=== PATIENT | male | born 1955 | race Caucasian/White ===

== ENCOUNTER 2017-10-27 09:04 | Emergency (ER) | payer BC ==
[2017-10-27 09:24] VITALS: BP 129/74
--- NOTE | 2017-10-27 10:38 | RAD ---
Indication: Left hand injury. 4 views of left hand demonstrates no fracture. Soft tissue swelling is noted. There appears to be a foreign body or calcification in between the first and second metacarpal heads. IMPRESSION: No fracture is identified. Foreign body or calcification is noted between heads of the first and second metacarpal.
--- NOTE | 2017-10-27 11:08 | UC ---
Hand/Wrist HPI - HPI Summary HPI Summary: got left hand shut in a door at the car garage yesterday swelling on dorsum of left hand - History Of Current Complaint Chief Complaint: UCUpperExtremity Stated Complaint: HAND INJURY Time Seen by Provider: 10/27/17 10:58 Hx Obtained From: Patient ?: No Mechanism Of Injury: crush injury Onset/Duration: Sudden Onset, Lasting Days - 1 Severity Initially: Mild Severity Currently: Mild Pain Intensity: 4 Pain Scale Used: 0-10 Numeric Character Of Pain: Aching, Stiffness Aggravating Factor(s): Movement Alleviating Factor(s): Nothing Associated Signs And Symptoms: Positive: Swelling, Bruising Related History: Dominant Hand Right - Allergies/Home Medications Allergies/Adverse Reactions: Allergies Allergy/AdvReac Type Severity Reaction Status Date / Time No Known Allergies Allergy Verified 10/27/17 09:24 Home Medications: Home Medications Albuterol HFA INHALER* [Ventolin HFA Inhaler*] 1 puff INH Q4H PRN 10/27/17 [ History Confirmed 10/27/17] Aspirin 81 mg PO 10/27/17 [History] Clopidogrel Bisulfate [Plavix] 75 mg PO 10/27/17 [History] Ranitidine HCl (Nf) [Zantac] 75 mg PO 10/27/17 [History] Simvastatin [Zocor] 40 mg PO 10/27/17 [History] dilTIAZem HCl [Cardizem 30 MG TAB] 30 mg PO 10/27/17 [History] PMH/Surg Hx/FS Hx/Imm Hx Previously Healthy: No Endocrine History: Dyslipidemia Cardiovascular History: Cardiac Disease, Hypertension GI/ History: Gastroesophageal Reflux - Surgical History Surgical History: Yes Surgery Procedure, Year, and Place: BACK-DISC 1991 - Family History Known Family History: Positive: None, Cardiac Disease, Hypertension, Diabetes - Social History Occupation: Employed Full-time Lives: With Family Alcohol Use: Rare Substance Use Type: None Smoking Status (MU): Former Smoker Amount Used/How Often: 7 PER DAY Have You Smoked in the Last Year: No Cessation Counseling: Patient Advised to Stop Review of Systems Constitutional: Negative Skin: Negative Eyes: Negative ENT: Negative Respiratory: Negative Cardiovascular: Negative Gastrointestinal: Negative Genitourinary: Negative Motor: Negative Neurovascular: Negative Musculoskeletal: Arthralgia - left hand, Other: - hematoma secondary to crush injury dorsum left hand Neurological: Negative Psychological: Negative Is Patient Immunocompromised?: No All Other Systems Reviewed And Are Negative: Yes Physical Exam Triage Information Reviewed: Yes Appearance: Well-Appearing, Well-Nourished, Pain Distress - mild Vital Signs: Initial Vital Signs Temp 98.5 F 10/27/17 09:20 Pulse 75 10/27/17 09:20 Resp 18 10/27/17 09:20 BP 129/74 10/27/17 09:20 Pulse Ox 97 10/27/17 09:20 Vital Signs Reviewed: Yes Eye Exam: Normal Eyes: Positive: Conjunctiva Clear ENT Exam: Normal ENT: Positive: Normal ENT inspection, Hearing grossly normal. Negative: Nasal congestion, Tonsillar swelling, Tonsillar exudate, Trismus, Muffled voice, Hoarse voice, Dental tenderness, Sinus tenderness Dental Exam: Normal Neck exam: Normal Neck: Positive: Supple, Nontender, No Lymphadenopathy Respiratory Exam: Normal Respiratory: Positive: Chest non-tender, Lungs clear, Normal breath sounds, No respiratory distress, No accessory muscle use Cardiovascular Exam: Normal Cardiovascular: Positive: RRR, No Murmur, Pulses Normal, Brisk Capillary Refill Musculoskeletal Exam: Normal Musculoskeletal: Positive: Strength Intact, ROM Intact, Edema @ - swelling dorsum of left hand Neurological Exam: Normal Neurological: Positive: Alert, Muscle Tone Normal, Fatigued Psychological Exam: Normal Diagnostics - Radiology No standard instances Xray Interpretation: Positive (See Comments) - swelling dorsal left hand incidental finding fb vs calcification between 1&2 metacarpals Radiology Interpretation Completed By: ED Physician, Radiologist Hand/Wrist Course/Dx - Course Course Of Treatment: ice followed by heat, jackie wrap for compression pain med prn follow with pcp prn - Differential Dx/Diagnosis Provider Diagnoses: contusion crush injury left hand, nicotine dependent Discharge - Discharge Plan Condition: Stable Disposition: HOME Prescriptions: traMADol TAB* [Ultram*] 50 mg PO Q6HR PRN #12 tab MDD 4 PRN Reason: pain Patient Education Materials: Hematoma (ED) Referrals: Chetan Santiago MD [Primary Care Provider] - If Needed
== END 2017-10-27 11:25 | disposition home or self-care (01) ==
LOC: UCEAST 09:04
DX: S60.222A Contusion of left hand, initial encounter (principal); W23.0XXA Caught, crushed, jammed, or pinched between moving objects, initial encounter; Y93.9 Activity, unspecified; Y92.59 Other trade areas as the place of occurrence of the external cause; E78.5 Hyperlipidemia, unspecified; I11.9 Hypertensive heart disease without heart failure; K21.9 Gastro-esophageal reflux disease without esophagitis; Z87.891 Personal history of nicotine dependence
CPT/HCPCS: 99212; G0463

== ENCOUNTER 2018-08-01 10:56 | Emergency (ER) | payer BC, OTHER ==
[2018-08-01 11:24] VITALS: BP 142/85
[2018-08-01] MEDS ORDERED: Lidocaine 1% MPF* 2 ML VIAL INJ ONE (11:29)
--- NOTE | 2018-08-01 11:33 | UC ---
UC General HPI - HPI Summary HPI Summary: CUT R HAND IN 2 PLACES ON SHEET METAL WHILE AT WORKED. 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 NO FB SNESATION OR LIMITED USE. TETANUS WITHIN 10 YEARS. PT C/O ONGOING BLEEDING. HE IS ON PLAVIX. - History of Current Complaint Chief Complaint: UCLaceration Stated Complaint: WC RIGHT HAND LACERATION Time Seen by Provider: 08/01/18 11:11 Hx Obtained From: Patient Onset/Duration: Sudden Onset Timing: Constant Pain Intensity: 0 Associated Signs & Symptoms: Negative: Fever - Allergy/Home Medications Allergies/Adverse Reactions: Allergies Allergy/AdvReac Type Severity Reaction Status Date / Time No Known Allergies Allergy Verified 08/01/18 11:09 Home Medications: Home Medications Amoxicillin/Clavulanate TAB* [Augmentin TAB 875*] 875 mg PO BID 08/01/18 [ History Confirmed 08/01/18] Budesonide/Formote 160/4.5(NF) [Symbicort 160/4.5 (NF)] 2 puff INH BID 08/01/18 [History Confirmed 08/01/18] Ranitidine TAB (NF) [Zantac TAB (NF)] 300 mg PO DAILY 08/01/18 [History Confirmed 08/01/18] PMH/Surg Hx/FS Hx/Imm Hx - Additional Past Medical History Additional PMH: PVD Endocrine History: Dyslipidemia Cardiovascular History: Hypertension - Surgical History Surgical History: Yes Surgery Procedure, Year, and Place: BACK-DISC 1991 - Family History Known Family History: Positive: None, Cardiac Disease, Hypertension, Diabetes - Social History Occupation: Employed Full-time Lives: With Family Alcohol Use: Rare Substance Use Type: None Smoking Status (MU): Former Smoker Amount Used/How Often: 7 PER DAY Length of Time of Smoking/Using Tobacco: ~1 PPD x 45+ Years Have You Smoked in the Last Year: No When Did the Patient Quit Smoking/Using Tobacco: 08/18/16 - Immunization History Most Recent Tetanus Shot: ~2015 Hx Tetanus, Diphtheria Vaccination: Yes Vaccination Up to Date: Yes Review of Systems All Other Systems Reviewed And Are Negative: Yes Constitutional: Positive: Negative Skin: Positive: Negative Eyes: Positive: Negative ENT: Positive: Negative Respiratory: Positive: Negative Cardiovascular: Positive: Negative Gastrointestinal: Positive: Negative Genitourinary: Positive: Negative Motor: Positive: Negative Neurovascular: Positive: Negative Musculoskeletal: Positive: Negative Neurological: Positive: Negative Psychological: Positive: Negative Physical Exam Triage Information Reviewed: Yes Appearance: Well-Appearing Vital Signs: Initial Vital Signs Temp 97.9 F 08/01/18 11:08 Pulse 90 08/01/18 11:08 Resp 18 08/01/18 11:08 BP 142/85 08/01/18 11:08 Pulse Ox 94 08/01/18 11:08 Vital Signs Reviewed: Yes Eyes: Positive: Conjunctiva Clear ENT: Positive: Normal ENT inspection Neck: Positive: Supple, Nontender Respiratory: Positive: Lungs clear, Normal breath sounds Cardiovascular: Positive: RRR, No Murmur Abdomen Description: Positive: Nontender, No Organomegaly, Soft Bowel Sounds: Positive: Present Musculoskeletal: Positive: Other: - R HAND: 3MM LACERATION PALM AND 3.5MMX3.5MM FLAP LACERATION R PALM. MILD VENOUS BLEEDING BOTH SITES. HAND HAS FULL S/V/M FUNCTION. Course/Dx - Course Course Of Treatment: PROCEDURE: TIME OUT. SITES PREP BETADINE AND LOCAL WITH 1% LIDOCAINE. EXPLORED AND NO FB, MM, TENDON OR LIGAMENT INJURIES. IRRIGATED STERILE NACL. PREP BETADINE AND CLOSE WITH 5-0 NYLON AND SINGLE STITCH(SIMPLE TO EACH SITE). STERILE TECHNIQUE USED, TOLERATED WELL. NO BLEEDING AFTER. WOUNDS DRESSED BY NURSING. - Diagnoses Provider Diagnosis: Laceration of hand, right Discharge - Sign-Out/Discharge Documenting (check all that apply): Patient Departure All imaging exams completed and their final reports reviewed: No Studies - Discharge Plan Condition: Stable Disposition: HOME Patient Education Materials: Care For Your Stitches (ED) Forms: *Work Release Referrals: Chetan Santiago MD [Primary Care Provider] - Additional Instructions: SUTURES OUT IN 7-10 DAYS - Billing Disposition and Condition Condition: STABLE Disposition: Home
== END 2018-08-01 12:00 | disposition home or self-care (01) ==
LOC: UCCORT 10:56
DX: S61.411A Laceration without foreign body of right hand, initial encounter (principal); W45.8XXA Other foreign body or object entering through skin, initial encounter; Y92.9 Unspecified place or not applicable; Y99.0 Civilian activity done for income or pay; I10 Essential (primary) hypertension; Z87.891 Personal history of nicotine dependence
CPT/HCPCS: 12001; 12002; 99211; G0463

== ENCOUNTER 2018-08-11 11:18 | Emergency (ER) | payer OTHER ==
[2018-08-11 11:54] VITALS: BP 145/77
--- NOTE | 2018-08-11 12:07 | UC ---
HPI Wound/Suture Re-check - HPI Summary HPI Summary: 62 year old male presents for wound check and suture removal. Was seen at this facility on 08/01/2018 for 2 small lacerations each less than 0.5 cm each to the palmar aspect of the right hand. A single interrupted suture was placed in each laceration. Denies fever, chills, redness, swelling, numbness, tingling, or purulent discharge. - History Of Current Complaint Chief Complaint: UCSkin Stated Complaint: SUTURE REMOVAL Time Seen by Provider: 08/11/18 12:03 Hx Obtained From: Patient Pain Intensity: 1 Procedure Type: Laceration repair right hand Surgery Date: 08/01/18 - Allergies/Home Medications Allergies/Adverse Reactions: Allergies Allergy/AdvReac Type Severity Reaction Status Date / Time No Known Allergies Allergy Verified 08/11/18 11:54 PMH/Surg Hx/FS Hx/Imm Hx Endocrine History: Dyslipidemia Cardiovascular History: Cardiac Disease, Hypertension Respiratory History: COPD GI/ History: Gastroesophageal Reflux - Surgical History Surgical History: Yes Surgery Procedure, Year, and Place: BACK-DISC 1991 - Family History Known Family History: Positive: Cardiac Disease, Hypertension, Diabetes - Social History Occupation: Employed Full-time Lives: With Family Alcohol Use: Rare Substance Use Type: None Smoking Status (MU): Former Smoker Amount Used/How Often: 7 PER DAY Length of Time of Smoking/Using Tobacco: ~1 PPD x 45+ Years Have You Smoked in the Last Year: No When Did the Patient Quit Smoking/Using Tobacco: 08/18/16 - Immunization History Most Recent Tetanus Shot: ~2016 Hx Tetanus, Diphtheria Vaccination: Yes Vaccination Up to Date: Yes Review of Systems All Other Systems Reviewed And Are Negative: Yes Constitutional: Negative: Fever, Chills Skin: Positive: Other - See HPI Motor: Negative: Decreased ROM, Weakness Neurovascular: Negative: Decreased Sensation Musculoskeletal: Negative: Arthralgia Neurological: Negative: Paresthesia, Numbness Is Patient Immunocompromised?: No Physical Exam - Summary Physical Exam Summary: GENERAL APPEARANCE: Well developed, well nourished, alert and cooperative, and appears to be in no acute distress. CARDIAC: Normal S1 and S2. No S3, S4 or murmurs. Rhythm is regular. There is no peripheral edema, cyanosis or pallor. Extremities are warm and well perfused. Capillary refill is less than 2 seconds. LUNGS: Clear to auscultation and percussion without rales, rhonchi, wheezing or diminished breath sounds. MUSKULOSKELETAL: ROM intact to all extremities. No joint erythema or tenderness. Normal muscular development. Normal gait. EXTREMITIES: No edema. Peripheral pulses intact. NEUROLOGICAL: Strength and sensation symmetric and intact throughout. SKIN: Skin normal color, texture and turgor. 2 small well healed lacerations each less than 0.5 cm each, well approximated with a single interrupted suture to the thenar eminence of the right hand. No erythema, swelling, induration, fluctuance, or drainage noted. Vital Signs: Initial Vital Signs Temp 98.6 F 08/11/18 11:51 Pulse 77 08/11/18 11:51 Resp 16 08/11/18 11:51 BP 145/77 08/11/18 11:51 Pulse Ox 96 08/11/18 11:51 Procedures - Procedure Summary Procedure Summary: Procedure note: Suture removal lacerations of the right hand. 2 interrupted sutures were removed without complication to the lacerations of the right hand. Anticipatory guidance and wound management discussed with patient. Warning symptoms reviewed. Course/Dx - Course Course Of Treatment: 62 year old male presents for wound check and suture removal. Was seen at this facility on 08/01/2018 for 2 small lacerations each less than 0.5 cm each to the palmar aspect of the right hand. A single interrupted suture was placed in each laceration. Denies fever, chills, redness , swelling, numbness, tingling, or purulent discharge. Sutures were removed without complication. Reviwed wound care and warning smptoms. Verbalizes understanding. - Diagnosis Provider Diagnosis: Laceration of right hand, Encounter for removal of sutures Discharge - Sign-Out/Discharge Documenting (check all that apply): Patient Departure All imaging exams completed and their final reports reviewed: No Studies - Discharge Plan Condition: Stable Disposition: HOME Patient Education Materials: Stitches Removal (ED) Referrals: Chetan Santiago MD [Primary Care Provider] - If Needed Additional Instructions: Your wound appears to be healing well with no evidence of infection. The sutures were removed without complication. Continue to keep the wound clean. Gently wash with a mild soap and water at least twice a day or any time it gets soiled. Apply an antibiotic ointment or petroleum jelly to the area to keep it moist while it continues to heal. Cover with a gauze dressing to prevent contamination. Follow up with your primary care provider as needed. Seek immediate medical attention if your develop a fever greater than 100.5 F, have pain not managed with over the counter pain medication, have increased redness or swelling of the hand, develop numbness or tingling in the hand or fingers, the wound reopens, there is pus draining from the wound, or any worsening of symptoms. - Billing Disposition and Condition Condition: STABLE Disposition: Home
== END 2018-08-11 12:26 | disposition home or self-care (01) ==
LOC: UCCORT 11:18
DX: S61.411D Laceration without foreign body of right hand, subsequent encounter (principal); I10 Essential (primary) hypertension; Z87.891 Personal history of nicotine dependence; X58.XXXD Exposure to other specified factors, subsequent encounter

== ENCOUNTER 2018-09-09 12:02 | Emergency (ER) | payer BC, OTHER ==
[2018-09-09 13:17] VITALS: BP 140/80
--- NOTE | 2018-09-09 13:39 | UC ---
Head Injury HPI - HPI Summary HPI Summary: head injury x 1 day s/p fall on ice last night , hit the back of his head on ice very hard no LOC , no memory loss + fatigue, + headache, no visual changes, no n/v , no photophobia on plavex for PAD - History Of Current Complaint Chief Complaint: UCGeneralIllness Stated Complaint: S/P FALL YESTERDAY HEAD/NECK PAIN Time Seen by Provider: 09/09/18 13:19 Hx Obtained From: Patient, Family/Certified Medication Aide Onset/Duration: Sudden Onset, Lasting Days - 1, Still Present Severity Currently: Moderate Severity Initially: Moderate Pain Intensity: 2 Character: Dull Aggravating Factor(s): Nothing Alleviating Factor(s): Nothing Associated Signs And Symptoms: Negative: LOC (Time In Secs./Mins/Hrs), LOC Duration Unknown, Confusion, Memory Loss, Seizure, Epistaxis, Dental Malocclusion, Neck Pain, Nausea, Vomiting Anticoagulant Therapy: Platelet Inhibitors - Allergies/Home Medications Allergies/Adverse Reactions: Allergies Allergy/AdvReac Type Severity Reaction Status Date / Time No Known Allergies Allergy Verified 09/09/18 13:10 Home Medications: Home Medications Acetaminophen [Acetaminophen Extra Strength] 1,000 mg PO Q6H PRN 09/09/18 [ History Confirmed 09/09/18] PMH/Surg Hx/FS Hx/Imm Hx - Additional Past Medical History Additional PMH: PAD on plavex Cardiovascular History: Hypertension Respiratory History: COPD, Asthma - Surgical History Surgical History: Yes Surgery Procedure, Year, and Place: BACK-DISC 1991 - Family History Known Family History: Positive: None, Cardiac Disease, Hypertension, Diabetes - Social History Alcohol Use: Rare Substance Use Type: None Smoking Status (MU): Former Smoker Amount Used/How Often: 7 PER DAY Length of Time of Smoking/Using Tobacco: ~1 PPD x 45+ Years Have You Smoked in the Last Year: No When Did the Patient Quit Smoking/Using Tobacco: 08/18/16 - Immunization History Most Recent Tetanus Shot: ~2016 Hx Tetanus, Diphtheria Vaccination: Yes Vaccination Up to Date: Yes Review of Systems All Other Systems Reviewed And Are Negative: Yes Constitutional: Positive: Negative Skin: Positive: Negative Eyes: Positive: Negative ENT: Positive: Negative Respiratory: Positive: Negative Musculoskeletal: Positive: Negative. Negative: Arthralgia, Calf Tenderness, Decreased ROM, Edema, Myalgia Neurological: Positive: Headache, Weakness. Negative: Paresthesia, Numbness Is Patient Immunocompromised?: No Physical Exam Triage Information Reviewed: Yes Appearance: No Pain Distress Vital Signs: Initial Vital Signs Temp 97.8 F 09/09/18 13:13 Pulse 73 09/09/18 13:13 Resp 18 09/09/18 13:13 BP 140/80 09/09/18 13:13 Pulse Ox 96 09/09/18 13:13 Vital Signs Reviewed: Yes Eye Exam: Normal Eyes: Positive: Conjunctiva Clear ENT: Positive: Normal ENT inspection, Hearing grossly normal, Pharynx normal Neck: Positive: Supple, Nontender, No Lymphadenopathy Respiratory: Positive: Chest non-tender, Lungs clear, Normal breath sounds Cardiovascular: Positive: RRR, No Murmur, Pulses Normal Abdominal Exam: Normal Abdomen Description: Positive: Nontender, No Organomegaly, Soft Bowel Sounds: Positive: Present Neurological: Positive: Alert, Muscle Tone Normal, Lethargic Skin Exam: Normal UC Physical Exam Vital Signs On Initial Exam: Initial Vitals Temp Pulse Resp BP Pulse Ox 97.8 F 73 18 140/80 96 09/09/18 13:13 09/09/18 13:13 09/09/18 13:13 09/09/18 13:13 09/09/18 13:13 - Neurological Exam Neurological: Sensory/Motor Intact, Alert, Oriented to Person Place, Time, CN Intact II-III, Reflexes Intact, Normal Gait, Speech Normal Head Injury Course/Dx - Differential Dx/Diagnosis Provider Diagnosis: Head injury Discharge - Sign-Out/Discharge Documenting (check all that apply): Patient Departure All imaging exams completed and their final reports reviewed: No Studies - Discharge Plan Condition: Fair Disposition: [facility] Patient Education Materials: Head Injury (ED) Referrals: Chetan Santiago MD [Primary Care Provider] - Additional Instructions: head injury , normal physical exam , no neurological deficit on plavix please go to [facility] ED for evaluation , may need CT head / brain to R /O bleed - Billing Disposition and Condition Condition: FAIR Disposition: [facility]
== END 2018-09-09 13:39 | disposition short-term general hospital (02) ==
LOC: UCCORT 12:02
DX: S09.90XA Unspecified injury of head, initial encounter (principal); W00.0XXA Fall on same level due to ice and snow, initial encounter; Y92.9 Unspecified place or not applicable; I73.9 Peripheral vascular disease, unspecified; Z79.01 Long term (current) use of anticoagulants; I10 Essential (primary) hypertension; Z87.891 Personal history of nicotine dependence
CPT/HCPCS: 99212; G0463

== ENCOUNTER 2018-12-27 10:04 | Emergency (ER) | payer BC ==
[2018-12-27 11:02] VITALS: BP 130/84
--- NOTE | 2018-12-27 11:40 | UC ---
Skin Complaint HPI - HPI Summary HPI Summary: took embedded tick off L lat neck today - thinks it was attached 5 days - History of Current Complaint Chief Complaint: UCSkin Time Seen by Provider: 12/27/18 11:15 Stated Complaint: TICK BITE Hx Obtained From: Patient Onset/Duration: Lasting Days Pain Intensity: 1 Character: Redness Aggravating Factor(s): Nothing Alleviating Factor(s): Nothing Associated Signs & Symptoms: Positive: Negative Related History: Insect Bite/Sting - Allergy/Home Medications Allergies/Adverse Reactions: Allergies Allergy/AdvReac Type Severity Reaction Status Date / Time No Known Allergies Allergy Verified 09/09/18 13:10 Home Medications: Home Medications Sulfamethox/Trimethoprim DS* [Bactrim DS 800/160 TAB*] 1 tab PO BID 12/27/18 [ History Confirmed 12/27/18] PMH/Surg Hx/FS Hx/Imm Hx Previously Healthy: Yes Cardiovascular History: Cardiac Disease, Hypertension Respiratory History: COPD GI/ History: Gastroesophageal Reflux - Surgical History Surgical History: Yes Surgery Procedure, Year, and Place: BACK-DISC 1991 - Family History Known Family History: Positive: None, Cardiac Disease, Hypertension, Diabetes - Social History Occupation: Employed Full-time Lives: With Family Alcohol Use: Rare Substance Use Type: None Smoking Status (MU): Former Smoker Amount Used/How Often: 7 PER DAY Length of Time of Smoking/Using Tobacco: ~1 PPD x 45+ Years Have You Smoked in the Last Year: No When Did the Patient Quit Smoking/Using Tobacco: 08/18/16 - Immunization History Most Recent Tetanus Shot: ~2016 Hx Tetanus, Diphtheria Vaccination: Yes Vaccination Up to Date: Yes Review of Systems All Other Systems Reviewed And Are Negative: Yes Constitutional: Positive: Negative Respiratory: Positive: Negative Cardiovascular: Positive: Negative Musculoskeletal: Positive: Negative Neurological: Positive: Negative Psychological: Positive: Negative Is Patient Immunocompromised?: No Physical Exam Triage Information Reviewed: Yes Appearance: Well-Appearing, No Pain Distress, Well-Nourished Vital Signs: Initial Vital Signs Temp 98.4 F 12/27/18 10:56 Pulse 83 12/27/18 10:56 Resp 18 12/27/18 10:56 BP 130/84 12/27/18 10:56 Pulse Ox 95 12/27/18 10:56 Vital Signs Reviewed: Yes Respiratory Exam: Normal Cardiovascular Exam: Normal Musculoskeletal Exam: Normal Neurological Exam: Normal Psychological Exam: Normal Skin Exam: Other - small erythemic sunshine L lat neck, no erythema migrans noted Course/Dx - Differential Diagnoses - Skin Complaint Differential Diagnoses: Foreign Body, Tick Born Illness - Diagnoses Provider Diagnosis: Tick bite Discharge - Sign-Out/Discharge Documenting (check all that apply): Patient Departure All imaging exams completed and their final reports reviewed: No Studies - Discharge Plan Condition: Good Disposition: HOME Prescriptions: DOXYcycline CAP(*) [DOXYcycline 100MG CAP(*)] 100 mg PO DAILY #2 cap Patient Education Materials: Tick Bite (ED) Referrals: Chetan Santiago MD [Primary Care Provider] - 2 Days (recheck tick bite) Additional Instructions: keep area clean and dry and take doxycycline as ordered - Billing Disposition and Condition Condition: GOOD Disposition: Home
== END 2018-12-27 11:50 | disposition home or self-care (01) ==
LOC: UCEAST 10:04
DX: S10.96XA Insect bite of unspecified part of neck, initial encounter (principal); W57.XXXA Bitten or stung by nonvenomous insect and other nonvenomous arthropods, initial encounter; Y92.9 Unspecified place or not applicable; I11.9 Hypertensive heart disease without heart failure; J44.9 Chronic obstructive pulmonary disease, unspecified; K21.9 Gastro-esophageal reflux disease without esophagitis; Z87.891 Personal history of nicotine dependence
CPT/HCPCS: 99212; G0463

== ENCOUNTER 2019-12-20 13:38 | Emergency (ER) | payer BC, OTHER ==
--- OUTSIDE RECORDS SUMMARY | 2019-12-20 14:29 | XMS REPORT | Summary of Care ---
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 Cap albuterol-ipratropium 3 mL by 270 Vial 5 02/03/2019 Active (DUO-NEB) 0.5-2.5 (3) Inhalation-SVN MG/3ML Inhalation route THREE TIMES Solution DAILY. pantoprazole Take 1 Tab by 90 Tab 3 04/02/2019 Active (PROTONIX) 40 MG Oral mouth DAILY. Tab ECIndications: Bond's esophagus without dysplasia Sildenafil Citrate 50 Take 1 Tab by 12 Tab 0 07/09/2019 Active MG Oral Tab mouth NEEDED (ED). sucralfate (CARAFATE) Take 1 Tab by 120 Tab 5 09/08/2019 Active 1 GM Oral Tab mouth THREE TIMES DAILY. simvastatin (ZOCOR) 40 Take 1 Tab by 90 Tab 5 10/12/2019 Active MG Oral mouth DAILY. 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 CAPSULE SR 24 HRIndications: Essential hypertension budesonide-formoterol Take 2 INHL by 1 Inhaler 5 10/19/2019 Active fumarate (SYMBICORT) inhalation TWICE 160-4.5 MCG/ACT DAILY. Inhalation AerosolIndications: Pulmonary emphysema, unspecified emphysema type (HCC) cephalexin (KEFLEX) EVERY 6 HOURS 0 12/20/2018 Active 500 MG Oral Cap OXYcodone 0 11/12/2019 Active (OXY-IR,OXY-FAST) 5 MG Oral Tab benzonatate (TESSALON Take 1 Cap by 60 Cap 0 11/17/2019 Active PERLES) 100 MG Oral mouth THREE TIMES CapIndications: Cough DAILY NEEDED for cough. albuterol HFA Take 2 Puffs by 1 Inhaler 3 12/15/2019 Active (VENTOLIN HFA) 108 (90 inhalation EVERY Base) MCG/ACT FOUR HOURS Inhalation Aero Soln NEEDED (copd). Tamsulosin HCl Take 1 Cap by 90 Cap 4 12/15/2019 Active (FLOMAX) 0.4 MG Oral mouth DAILY. Cap Tamsulosin HCl Take 1 Cap by 60 Cap 6 12/16/2019 Active (FLOMAX) 0.4 MG Oral mouth DAILY. Cap documented as of this encounter (statuses as of 12/17/2019) Active Problems Problem Noted Date Essential hypertension 10/03/2017 Bond's esophagus without dysplasia 09/19/2017 Overview: Esophago-gastroduodenoscopy 2014 Peripheral arterial disease 09/19/2017 Family history of colon cancer 12/12/2011 Overview: Dad stage IV colon cancer age 80 Panlobular emphysema 11/07/2011 Overview: Mild as needed albuterol metered dose inhaler. Ct scan 2018 Tubular adenoma of colon 11/20/2007 Overview: Polypectomy 2006, polypectomy 05/14 Reflux esophagitis 11/20/2007 Overview: EGD performed 07/14/07 Lumbar disc disease 11/20/2007 Overview: Documented diskectomy of L5 lesion performed in 1992 History of tobacco use 11/20/2007 Overview: Documented 30-35 pack year history since age 16. 1/2 packs per day 09/10. Cut down from 1.5 pack per day to 10 cigarette daily 09/2011 8 cigarette per day 03/2013 Quit August 2016 Noncardiac Chest Pain 11/20/2007 Overview: Documented Negative Stress test in 2002 documented as of this encounter (statuses as of 12/17/2019) Resolved Problems Problem Noted Date Resolved Date Gangrene of toe 02/21/2018 12/26/2018 Mixed hyperlipidemia 11/07/2011 12/12/2011 Diverticulosis of Colon 11/20/2007 02/08/2017 Overview: Colonoscopy performed 07/14/07 Internal Hemorrhoids 11/20/2007 11/07/2011 Hiatal Hernia 11/20/2007 11/07/2011 Overview: EGD performed 07/14/07 Esophageal reflux 11/20/2007 11/07/2011 Dog bite(E906.0) 07/30/2007 11/07/2011 Overview: Dog bite to left posterior calf 07/29/07 documented as of this encounter (statuses as of 12/17/2019) Immunizations Name Administration Dates Next Due Adacel TdaP 07/30/2007 H1N1 Injectable Adult 08/22/2009 Influenza (IM) Preservative Free 06/12/2019, 06/26/2018, 09/05/2017, 06/09/2016, 07/19/2015, 06/17/2013, 08/08/2012 Influenza (IM) W/Pres 07/16/2014 Influenza Vaccine Whole 06/28/2009 Influenza Virus Vaccine - Whole 07/30/2007 PNEUMOCOCCAL POLYSACCHARIDE VACCINE 06/26/2019 Pneumococcal Conjugate Vaccine 09/19/2017 documented as of this encounter Social History Tobacco Use Types Packs/Day Years Used Date Former Smoker Cigarettes 0.4 30 Quit: 08/18/2016 Smokeless Tobacco: Never Used Comments: Documented 30-35 pack years since age 16 Alcohol Use Drinks/Week oz/Week Comments No 0 Standard drinks or equivalent 0.0 Sex Assigned at Date Recorded Not on file COVID-19 Exposure Response Date Recorded In the last month, have you been in contact with No / Unsure 12/17/2019 7:31 AM EDT someone who was confirmed or suspected to have Coronavirus / COVID-19? documented as of this encounter Last Filed Vital Signs Not on filedocumented in this encounter Patient Instructions Patient InstructionsGeri Early FNP - 12/17/2019 9:00 JUAN Herman written and sent to pt along with handicapped permit form documented in this encounter Progress Notes Geri Early FNP - 12/17/2019 9:00 AM EDT PATIENT: Alexy Roa : 1955 DATE OF SERVICE: 12/17/2019 CHIEF COMPLAINT: Chief Complaint Patient presents with ? Follow Up note for work Subjective HISTORY OF PRESENT ILLNESS: Alexy Roa is a 64-y.o. male. HPI In our efforts to minimize the spread of COVID-19 in our community, amongst our patients, healthcarestaff and providers, we have implemented virtual visits with our patients. No vital signs, physical exam or in-office diagnostics were completed during this visit. These items may be accomplished during subsequent visits. Pt was seen today for virtual visit via Zoom - audio not working on pt end so that was phone by phone leilani during visit Pt asking for continuation of out of work note - works at [employer] and has COPD Also requesting handicapped parking permit Past Medical History: Diagnosis Date ? Benign neoplasm of colon 11/20/2007 ? COPD (chronic obstructive pulmonary disease) (HCC) ? Diverticulosis of Colon 11/20/2007 ? Diverticulosis of Colon 11/20/2007 Colonoscopy performed 07/14/07 ? Dog bite(E906.0) 07/30/2007 Dog bite to left posterior calf 07/29/07 ? Esophageal reflux 11/20/2007 ? Hiatal Hernia 11/20/2007 EGD performed 07/14/07 ? Internal Hemorrhoids 11/20/2007 ? Lesion of Lumbar Region 11/20/2007 ? Lesion of Lumbar Region 11/20/2007 Documented diskectomy of L5 lesion performed in 1992 ? Nicotine Dependence 11/20/2007 Documented 30-35 pack year history since age 16 ? Noncardiac Chest Pain 11/20/2007 Documented Negative Stress test in 2002 ? Reflux esophagitis 11/20/2007 EGD performed 07/14/07 Family History Problem Relation Age of Onset ? Heart Father Myocardial Infarction ? Cancer Father pancreatic, colon ? Heart Mother Congestive Heart Failure ? Diabetes Mother ? Cancer Sister thyroid Current Outpatient Medications Medication Sig ? Acetaminophen (TYLENOL) 325 MG Oral Cap Take by mouth NEEDED. ? albuterol HFA (VENTOLIN HFA) 108 (90 Base) MCG/ACT Inhalation Aero Soln Take 2 Puffs by inhalation EVERY FOUR HOURS NEEDED (copd). ? albuterol-ipratropium (DUO-NEB) 0.5-2.5 (3) MG/3ML Inhalation Solution 3 mL by Inhalation-SVN route THREE TIMES DAILY. ? benzonatate (TESSALON PERLES) 100 MG Oral Cap Take 1 Cap by mouth THREE TIMES DAILY NEEDED for cough. ? budesonide-formoterol fumarate (SYMBICORT) 160-4.5 MCG/ACT Inhalation Aerosol Take 2 INHL byinhalation TWICE DAILY. ? cephalexin (KEFLEX) 500 MG Oral Cap EVERY 6 HOURS ? diltiazem (CARDIZEM CD) 240 MG Oral CAPSULE SR 24 HR Take 1 Cap by mouth DAILY. ? OXYcodone (OXY-IR,OXY-FAST) 5 MG Oral Tab ? pantoprazole (PROTONIX) 40 MG Oral Tab EC Take 1 Tab by mouth DAILY. ? Sildenafil Citrate 50 MG Oral Tab Take 1 Tab by mouth NEEDED (ED). ? simvastatin (ZOCOR) 40 MG Oral Tab Take 1 Tab by mouth DAILY. ? sucralfate (CARAFATE) 1 GM Oral Tab Take 1 Tab by mouth THREE TIMES DAILY. ? Tamsulosin HCl (FLOMAX) 0.4 MG Oral Cap Take 1 Cap by mouth DAILY. ? Tamsulosin HCl (FLOMAX) 0.4 MG Oral Cap Take 1 Cap by mouth DAILY. No current facility-administered medications for this visit. Allergies Allergen Reactions ? No Known Drug Allergy Social History Socioeconomic History ? Marital status: Spouse name: Not on file ? Number of children: Not on file ? Years of education: Not on file ? Highest education level: Not on file Occupational History ? Not on file Social Needs ? Financial resource strain: Not on file ? Food insecurity Worry: Not on file Inability: Not on file ? Transportation needs Medical: Not on file Non-medical: Not on file Tobacco Use ? Smoking status: Former Smoker Packs/day: 0.40 Years: 30.00 Pack years: 12.00 Types: Cigarettes Last attempt to quit: 08/18/2016 Years since quittin.3 ? Smokeless tobacco: Never Used ? Tobacco comment: Documented 30-35 pack years since age 16 Substance and Sexual Activity ? Alcohol use: No Alcohol/week: 0.0 standard drinks ? Drug use: No ? Sexual activity: Never Lifestyle ? Physical activity Days per week: Not on file Minutes per session: Not on file ? Stress: Not on file Relationships ? Social connections Talks on phone: Not on file Gets together: Not on file Attends alevism service: Not on file Active member of club or organization: Not on file Attends meetings of clubs or organizations: Not on file Relationship status: Not on file ? Intimate partner violence Fear of current or ex partner: Not on file Emotionally abused: Not on file Physically abused: Not on file Forced sexual activity: Not on file Other Topics Concern ? Back Care Not Asked ? Bike Helmet Not Asked ? Blood Transfusions Not Asked ? Caffeine Concern Not Asked ? Exercise Yes Comment: on feet all day at [employer] ? Hobby Hazards Not Asked ? International Travel Not Asked ? Service Not Asked ? Occupational Exposure Not Asked ? Seat Belt Not Asked ? Self-Exams Not Asked ? Sleep Concern Not Asked ? Special Diet Yes Comment: low fat diet ? Stress Concern No ? Weight Concern No Social History Narrative [facility] in 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 Negative for cough. Musculoskeletal: Negative for myalgias. Objective PHYSICAL EXAM: VITALS: There were no vitals taken for this visit. There is no height or weight on file to calculate BMI. Physical Exam Constitutional: General: He is not in acute distress. Neurological: Mental Status: He is alert. Psychiatric: Behavior: Behavior is cooperative. Reviewed chart and meds with pt - due to current pandemic pt is at risk due to COPD - note to remain out of work done as was handicapped parking permit application. ASSESSMENT / IMPRESSION: ICD-9-CM ICD-10-CM 1. Chronic obstructive pulmonary disease, unspecified COPD type ([facility]) 496 J44.9 Plan Letter written and sent to pt along with handicapped permit form 15 minutes spent with pt for online virtual visit Author: LANEY Burdick 12/17/2019 09:17 documented in this encounter Plan of Treatment Health Maintenance Due Date Last Done Comments CT Colonography 1955 Cologuard 1955 FIT/FOBT 1955 Sigmoidoscopy 1955 DTaP/Tdap/Td Vaccines (1 - 1967 Tdap) ZOSTER IMMUNIZATION SERIES 2006 (1 of 2) DEPRESSION SCREENING 01/24/2020 01/23/2019 Colonoscopy 07/04/2020 07/04/2015, 05/13/2012, 07/14/2007 Colorectal Cancer Screening 07/04/2020 DIABETES SCREENING 09/23/2020 09/23/2019, 02/06/2019, 12/06/2018, Additional history exists LIPID DISORDER SCREENING 10/12/2020 10/12/2019, 02/06/2019, 12/06/2018, Additional history exists INFLUENZA VACCINE Completed 06/12/2019, 06/26/2018, 09/05/2017, Additional history exists PNEUMOCOCCAL 0-64 YRS Completed 06/26/2019, 09/19/2017 HEPATITIS A IMMUNIZATION Aged Out No longer eligible SERIES based on patient's age to complete this topic HPV IMMUNIZATION SERIES Aged Out No longer eligible based on patient's age to complete this topic MENINGOCOCCAL VACCINE IMM Aged Out No longer eligible based on patient's age to complete this topic documented as of this encounter Goals Goal Patient Goal Associated Recent Patient-Stated? Author Type Problems Progress Blood Pressure Blood Pressure 142/70 No Jack, < 150/90 (11/17/2019 Chetan Sellers, 3:24 PM EDT) Note: This is an individualized treatment (blood pressure) goal for Alexy Liub: Displayed above (on the left) is your goal for blood pressure control. Your most recent blood pressure is also shown above, on the right. You should try to achieve blood pressures that are lower than your goal listed above (on the left). Smoking Cessation COPD Chetan Negrete MD Note: This is an individualized treatment (COPD) goal for Alexy Dowling Crispin: Quit smoking immediately! Your provider has information and resources that may help you to quit. Keep immunizations current Lifestyle Chetan Negrete MD Note: This is an individualized lifestyle goal for Alexy Dowling Crispin: Please be sure to keep up-to-date on recommended immunizations. For example, this would include a yearly influenza vaccine. Immunization status can be seen by looking at the Health Maintenance sections of your e[facility], Plan of Care, and any After Visit Summaries. Take all prescribed medications as Self-management Chetan Negrete MD directed Note: This is an individualized self-management goal for Alexy Roa: Please take all prescribed medications as directed. 1. Do not skip doses. If you cannot afford your medications, talk with your doctor. 2. Use a pill reminder system such as a pill box if needed. Your pharmacist can help you with this. 3. Contact your Pharmacy 5 days before your medication runs out. If you cannot take your medications for any reasons, talk with your doctor. 4. Please bring all of your medication bottles and inhalers (or a list of all your medications/inhalers) with you to every visit. Potential barriers to meeting all of your care plan goals will continue to be addressed on an ongoing basis. documented as of this encounter Results Not on filedocumented in this encounter Visit Diagnoses Diagnosis Chronic obstructive pulmonary disease, unspecified COPD type (HCC) documented in this encounter Insurance Payer Benefit Plan / Subscriber ID Effective Dates Phone Address Type Group [facility] [employer] ACCESS [id number] Effective for all [facility] CARE PPO dates Guarantor Name Account Type Relation to Date of Phone Billing Patient Address Alexy Roa Personal/Family 1955 [address] (Home) [phone] [place], [place] (Work) [id number] documented as of this encounter
--- OUTSIDE RECORDS SUMMARY | 2019-12-20 14:29 | XMS REPORT | Summary of Care ---
:1955 Author Organization [facility] Address [address] [address] Care Team Providers Name Role Phone Chetan Santiago Primary Care Provider Reason for Visit Reason Comments Pre-op Exam hydroclectomy w/ Dr. Childress Encounter Details Date Type Department Care Team Description 11/05/2019 Office Visit [facility] Chetan Santiago, Preop examination Medicine MD (Primary Dx) [address] [place] [address] [place] [address] [phone] Allergies Active Allergy Reactions Severity Noted Date Comments No Known Drug Allergy 11/20/2007 documented as of this encounter (statuses as of 11/05/2019) Medications Medication Sig Dispensed Refills Start Date End Date Status Acetaminophen Take by mouth 0 Active (TYLENOL) 325 MG NEEDED. Oral Cap albuterol HFA Take 2 Puffs by 1 Inhaler 3 12/02/2018 Active (VENTOLIN HFA) 108 inhalation (90 Base) MCG/ACT EVERY FOUR Inhalation Aero HOURS NEEDED Soln (copd). albuterol-ipratrop 3 mL by 270 Vial 5 02/03/2019 Active ium (DUO-NEB) Inhalation-SVN 0.5-2.5 (3) MG/3ML route THREE Inhalation TIMES DAILY. Solution pantoprazole Take 1 Tab by 90 Tab 3 04/02/2019 Active (PROTONIX) 40 MG mouth DAILY. Oral Tab ECIndications: Bond's esophagus without dysplasia Sildenafil Citrate Take 1 Tab by 12 Tab 0 07/09/2019 Active 50 MG Oral Tab mouth NEEDED (ED). sucralfate Take 1 Tab by 120 Tab 5 09/08/2019 Active (CARAFATE) 1 GM mouth THREE Oral Tab TIMES DAILY. simvastatin Take 1 Tab by 90 Tab 5 10/12/2019 Active (ZOCOR) 40 MG Oral mouth DAILY. TabIndications: Blue toe syndrome of left lower extremity (HCC) diltiazem Take 1 Cap by 90 Cap 3 10/12/2019 Active (CARDIZEM CD) 240 mouth DAILY. MG Oral CAPSULE SR 24 HRIndications: Essential hypertension budesonide-formote Take 2 INHL by 1 Inhaler 5 10/19/2019 Active rol fumarate inhalation (SYMBICORT) TWICE DAILY. 160-4.5 MCG/ACT Inhalation AerosolIndications : Pulmonary emphysema, unspecified emphysema type (HCC) Tamsulosin HCl Take 1 Cap by 60 Cap 6 10/29/2019 Active (FLOMAX) 0.4 MG mouth DAILY. Oral Cap tramadol (ULTRAM) Take 1 Tab by 28 Tab 0 09/29/2019 11/05/19 Discontinued 50 MG Oral mouth EVERY SIX 20 (Provider TabIndications: HOURS NEEDED Discontinued) Varma's cyst of (pain). Max knee, right Daily Amount: 200 mg. clopidogrel Take 1 Tab by 90 Tab 3 10/12/2019 11/05/19 Discontinued (PLAVIX) 75 MG mouth DAILY. 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 20 (Duplicate Oral Order) CapIndications: Hyperplasia of prostate documented as of this encounter (statuses as of 11/05/2019) Active Problems Problem Noted Date Essential hypertension [...] as of this encounter (statuses as of 11/05/2019) Resolved Problems Problem Noted Date Resolved Date Gangrene of toe 02/21/2018 12/26/2018 Mixed hyperlipidemia 11/07/2011 12/12/2011 Diverticulosis of Colon 11/20/2007 02/08/2017 Overview: Colonoscopy performed 07/14/07 Internal Hemorrhoids 11/20/2007 11/07/2011 Hiatal Hernia 11/20/2007 11/07/2011 Overview: EGD performed 07/14/07 Esophageal reflux 11/20/2007 11/07/2011 Dog bite(E906.0) 07/30/2007 11/07/2011 Overview: Dog bite to left posterior calf 07/29/07 documented as of this encounter (statuses as of 11/05/2019) Immunizations Name Administration Dates Next Due Adacel [...] Assigned at Date Recorded Not on file documented as of this encounter Last Filed Vital Signs Vital Sign Reading Time Taken Comments Blood Pressure 136/78 11/05/2019 11:29 AM EST Pulse 76 11/05/2019 11:29 AM EST Temperature 35.7 11/05/2019 11:29 AM EST C (96.2 F) Respiratory Rate - - Oxygen Saturation 96% 11/05/2019 11:29 AM EST Inhaled Oxygen Concentration - - Weight 95.7 kg (211 lb) 11/05/2019 11:29 AM EST Height 188 cm (6' 2") 11/05/2019 11:29 AM EST Body Mass Index 27.09 11/05/2019 11:29 AM EST documented in this encounter Patient Instructions Patient InstructionsChetan Santiago MD - 11/05/2019 11:20 AM ESTStay off plavix Diltiazem symbicort and duoneb the am of surgery You are low risk for surgery documented in this encounter Progress Notes Chetan Santiago MD - 11/05/2019 11:20 AM EST PATIENT: Alexy Roa : 1955 DATE OF SERVICE: 11/05/2019 Subjective SUBJECTIVE: Alexy Roa is a 64-y.o. male who presents to the office today for a preoperative consultation at the request of Dr childress, who will perform a hydrocelectomy on november 09 2019. Patient complains of cardiac symptoms: none. Patient denies cardiac symptoms: none. Past history of pulmonary embolism/deep vein thrombosis: no. There is a history of bleeding complications: no Past history of anesthetic problem: no. Exercise capacity: Can you walk 2 blocks on level ground, or carry 2 bags of groceries up 2 flights of stairs? due to copd this is stable Count the number of risk factors in the revised Woodward cardiac risk index. ( RCRI): 0 High risk procedure: eg vascular surgery, any open intraperitoneal or intrathoracic 0 History of ischemic heart disease (history of DC or a positive exercise test , current complaint of chest pain considered to be secondary to myocardial ischemia, use of nitrate therapy, or ECG with pathological Q waves; do not count prior coronary revascularization procedure unless one of the other criteria for ischemic heart disease is present) 0 Hx of CHF, either systolic or diastolic 0 History of cerebrovascular disease (TIA or Stroke) 0 Diabetes mellitus requiring treatment with insulin 0 Preoperative serum creatinine >2.0 mg/dl The risk of cardiac , nonfatal myocardial infarction, and nonfatal cardiac arrest according to the number of above risk predictors is estimated to be: No risk factors - 0.4 percent (95% CI: 0.1 - 0.8) Screening for sleep apnea: Stop-Bang 1 Snoring: Do you snore loudly (louder than talking or heard through closed doors)? 1 Tired: Do you often feel tired, fatigued, or sleepy during the day? 1 Observed: Has anyone observed you stop breathing during your sleep? 1 Pressure: Do you have or are you being treated for high blood pressure? 0 BMI: >35 kg/m2? 1 Age: >50? 0 Neck circumference: >40 cm? 1 Gender: Male? The STOP-BANG screening questionnaire for obstructive sleep apnea shows: 5/8 positive responses There is a high probability for obstructive sleep apnea. Current active problems are: Patient Active Problem List Diagnosis Date Noted ? Essential hypertension 10/03/2017 ? Bond's esophagus without dysplasia 09/19/2017 Esophago-gastroduodenoscopy 2013 ? Peripheral arterial disease (HCC) 09/19/2017 ? Family history of colon cancer 12/12/2011 Dad stage IV colon cancer age 80 ? Panlobular emphysema (HCC) 11/07/2011 Mild as needed albuterol metered dose inhaler. Ct scan 2017 ? Tubular adenoma of colon 11/20/2007 Polypectomy 2006, polypectomy 05/14 ? Reflux esophagitis 11/20/2007 EGD performed 07/14/07 ? Lumbar disc disease 11/20/2007 Documented diskectomy of L5 lesion performed in 1992 ? History of tobacco use 11/20/2007 Documented 30-35 pack year history since age 16. 1/2 packs per day 09/10. Cut down from 1.5 pack per day to 10 cigarette daily 09/2011 8 cigarette per day 03/2013 Quit August 2016 ? Noncardiac Chest Pain 11/20/2007 Documented Negative Stress test in 2002 Family History Problem Relation Age of Onset [...] by Inhalation-SVN route THREE TIMES DAILY. ? budesonide-formoterol fumarate (SYMBICORT) 160-4.5 MCG/ACT Inhalation Aerosol Take 2 INHL byinhalation TWICE DAILY. ? diltiazem (CARDIZEM CD) 240 MG Oral CAPSULE SR 24 HR Take 1 Cap by mouth DAILY. ? pantoprazole (PROTONIX) 40 MG Oral Tab [...] Last attempt to quit: 08/18/2016 Years since quittin.2 ? Smokeless tobacco: Never Used ? 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 The patient has dentures: Yes Objective OBJECTIVE: BP 136/78 (BP Location: Right arm, Patient Position: Sitting) | Pulse 76 | Temp 96.2 F (35.7 C) | Ht 6' 2" (1.88 m) | Wt 211 lb (95.7 kg) | SpO2 96% | BMI 27.09 kg/m Chest: clear to auscultation, no wheezes, rales or rhonchi, symmetric air entry , decreased breath sounds throughout. The physical exam is generally normal. He appears well, alert and oriented x 3, pleasant and cooperative. Vitals as noted. ENT normal, neck supple and free of adenopathy, or masses. No thyromegaly or carotid bruits. Cranial nerves and fundi normal.Heart sounds are normal, no murmurs, clicks, gallops or rubs. Abdomen is soft, no tenderness, masses or organomegaly. Extremities, peripheral pulses and reflexes are normal. Testes are normal without masses, no hernias noted. Phallus normal.Screening neurological exam is normal without focal findings. Skin is normal without suspicious lesions. ECG reviewed and signed: no acute changes. ASSESSMENT: No contraindications to planned surgery 1. Preop examination Clinical predictors: The RCRI score is: 0 Respiratory risk: The patient has pre-existing risks of possible lele consider positive airway pressure intraoperatively The risk of airway problems is medium based on the mallampati score and the Stop-bang score. He has stable copd Anticoagulation: The patient is not on plavix currently . Recommendations regarding stopping these medications before surgery: hold plavix Plan PLAN: 1. Patient requires endocarditis prophylaxis: no. 2. Recommend perioperative beta-shanae: no. 3. Patient requires perioperative deep vein thrombosis prophylaxis: no. 4. General preoperative instructions for patient. Proceed with surgery as planned. No food or liquids the morning of surgery. Call surgeon if develop respiratory illness, fever, or other illness. Take the following medications the morning of surgery with a sip of water diltiazem and use symbicort am surgery and duoneb am surgery Letter sent to requesting surgeon listed above. Written preoperative instructions given.. Author: Chetan Santiago MD 11/05/2019 11:55 documented in this encounter Plan of Treatment Name Type Priority Associated Diagnoses Order Schedule CBC WITH DIFFERENTIAL Lab Routine Preop examination Ordered: 11/05/2019 PARTIAL THROMBOPLASTIN TIME Lab Routine Preop examination Ordered: 2019 PROTHROMBIN TIME Lab Routine Preop examination Ordered: 11/05/2019 Health Maintenance Due Date Last Done Comments DTaP/Tdap/Td Vaccines (1 - 1967 Tdap) ZOSTER IMMUNIZATION SERIES 2006 (1 of 2) DEPRESSION SCREENING 01/24/2020 01/23/2019 Colonoscopy 07/04/2020 07/04/2015, 04/28/2015 (Postponed), 05/13/2012, Additional history exists DIABETES SCREENING 09/23/2020 09/23/2019, 02/06/2019, 12/06/2018, Additional [...] Type Problems Progress Blood Pressure Blood Pressure 136/78 No Jack, < 150/90 (11/05/2019 Chetan Sellers, 11:29 AM EST) Note: This is an individualized treatment (blood pressure) goal for Alexy Roa: Displayed above (on the left) is your goal for blood pressure control. Your most recent blood pressure is also shown above, on the right. You should try to achieve blood pressures that are lower than your goal listed above (on the left). Smoking Cessation COPD Chetan Negrete MD Note: This is an individualized treatment (COPD) goal for Alexy Roa: Quit smoking immediately! Your provider has information and resources that may help you to quit. Keep immunizations current Lifestyle Chetan Negrete MD Note: This is an individualized lifestyle goal for Alexy Roa: Please be sure to keep up-to-date on [...] filedocumented in this encounter Visit Diagnoses Diagnosis Preop examination Preoperative examination, unspecified documented in this encounter Insurance Payer Benefit Plan / Subscriber ID Effective Dates Phone Address Type Group Place[employer]logger[employer] BCBS [employer] ACCESS [id number] Effective for all [employer] PPO dates Guarantor Name Account Type Relation to Date of Phone Billing Patient Address Alexy Roa Personal/Family 1955 [address] (Home) [phone] [place], [place] (Work) [address] documented as of this encounter
--- OUTSIDE RECORDS SUMMARY | 2019-12-20 14:29 | XMS REPORT | Continuity of Care Document ---
:1955 External Reference #:[id number] Author Name Robby Canchola M.D. (transmitted by agent of provider Amanda Beebe) Address [address] [address] Care Team Providers Name Role Phone Rosa Cartwright MD Care Team Information Mounter [employer]arin[employer] [phone] Chetan Santiago MD - Internal Care Team Information [employer]ounter [employer] Medicine Problems Active Problems Provider Date Hydrocele Robby Canchola M.D. Onset: 07/13/2019 Social History Type Date Description Comments Sex Unknown Tobacco Use Start: Unknown End: Unknown Patient is a former smoker Smoking Status Reviewed: 12/03/19 Patient is a former smoker Allergies, Adverse Reactions, Alerts Description No Known Drug Allergies Medications Active Medications SIG Qnty Indications Ordering Date Provider Oxycodone HCL 1 tab by mouth 10caps Robby Canchola, 11/12/2019 5mg every 6 hours as M.D. Capsules needed for pain Sildenafil Citrate Gabbie, 50mg Rosa ZELAYA Tablets Tamsulosin HCL Gabbie, 0.4mg Rosa ZELAYA Capsules Symbicort Chetan Santiago, 160-4.5mcg/Act Aerosol Clopidogrel Bisulfate Chetan Santiago, 75mg Tablets Diltiazem HCL ER Chetan Santiago, Coated Beads 240mg Caps ER 24HR Simvastatin Naif, 40mg CHARLEEN Faulkner Tablets Fluarix Quadrivalent Unknown 0.5ml [place]ba Ipratropium Inhale One [place] By Unknown [place]/Albuterol Nebulizer Three Sulfate Times A Day 0.5-2.5(3)mg/3ML Solution Pantoprazole Sodium Take One Tablet By Unknown Mouth Every Day 40mg Tablets DR Carafate 1 tab by mouth Unknown 1gm Tablets three times a day as needed for heartburn Immunizations Description No Information Available Vital Signs Date Vital Result Comment 11/12/2019 9:06am BP Systolic 133 mmHg BP Diastolic 83 mmHg Body Temperature 98.1 F Heart Rate 93 /min Respiratory Rate 19 /min Height 74 inches 6'2" Weight 210.00 lb pt stated Pain Level 6 right groin BMI (Body Mass Index) 27.0 kg/m2 BSA (Body Surface Area) 2.22 m2 [place] body weight in kilograms 86 kg O2 % BldC Oximetry 95 % 07/13/2019 11:19am BP Systolic 129 mmHg BP Diastolic 86 mmHg Body Temperature 96.7 F Heart Rate 95 /min Respiratory Rate 16 /min Height 74 inches 6'2" Weight 203.00 lb Pain Level 0 BMI (Body Mass Index) 26.1 kg/m2 BSA (Body Surface Area) 2.19 m2 [place] body weight in kilograms 86 kg O2 % BldC Oximetry 97 % Results Test Acquired Date Facility Test Result H/L Range Note Urine Dipstick 07/13/2019 [facility] Color yellow Yellow Ua Clarity clear Clear Ua Leuko neg Negative Ua Nitrite neg Negative Ua Urobilinogen 0.2 0.2 - 1.0 E.U./dL Ua Protein neg Negative Ua PH 5.5 Low 6.5-7.5 Ua Blood neg Negative Ua Specific [place] 1.020 1.010-1.030 Ua Ketones neg Negative Ua Bilirubin neg Negative Ua Glucose neg Negative Procedures Date Code Description Status 11/09/2019 80347 Excision of hydrocele; unilateral Completed 07/13/2019 92014 Measurement Post Voiding Residual Urine By Completed Ultrasound,Non-Imaging 07/13/2019 88456 complex uroflowmetry electronic Completed Medical Devices Description No Information Available Encounters Type Date Location Provider Dx Diagnosis Office Visit 07/13/2019 Urology Robby Canchola, N43.3 Hydrocele, unspecified 11:00a M.D. Assessments Date Code Description Provider 11/12/2019 N43.3 Hydrocele, unspecified Robby aCnchola M.D. 11/09/2019 N43.3 Hydrocele, unspecified JesikaRobby parsons M.D. 08/25/2019 J18.9 Pneumonia, unspecified organism Jojo Monzon M.D. 08/25/2019 J96.01 Acute respiratory failure with hypoxia Jojo Monzon M.D. 08/25/2019 R04.2 Hemoptysis Jojo Monzon M.D. 08/25/2019 J44.9 Chronic obstructive pulmonary disease, Jojo Monzon M.D. unspecified 08/24/2019 J18.9 Pneumonia, unspecified organism Jojo Monzon M.D. 08/24/2019 J96.01 Acute respiratory failure with hypoxia Jojo Monzon M.D. 08/24/2019 R04.2 Hemoptysis Jojo Monzon M.D. 08/24/2019 J44.9 Chronic obstructive pulmonary disease, Jojo Monzon M.D. unspecified 08/23/2019 J18.9 Pneumonia, unspecified organism Ze Bond MD 08/23/2019 J96.01 Acute respiratory failure with hypoxia Ze Bond MD 08/23/2019 R04.2 Hemoptysis Ze Bond MD 08/23/2019 J44.9 Chronic obstructive pulmonary disease, Ze Bond MD unspecified 08/22/2019 J18.9 Pneumonia, unspecified organism Jonny Kim MD 08/22/2019 J96.01 Acute respiratory failure with hypoxia Jonny Kim MD 08/22/2019 R04.2 Hemoptysis Jonny Kim MD 08/22/2019 J44.9 Chronic obstructive pulmonary disease, Jonny Kim MD unspecified 07/13/2019 N43.3 Hydrocele, unspecified Robby Canchola M.D. Plan of Treatment No Information Available Functional Status Description No Information Available Mental Status Description No Information Available Referrals Description No Information Available
--- OUTSIDE RECORDS SUMMARY | 2019-12-20 14:29 | XMS REPORT | Continuity of Care Document ---
:1955 External Reference #:[id number] Author Name Robby Canchola M.D. (transmitted by agent of provider Valerie Farfan) Address [address] [address] Care Team Providers Name Role Phone Rosa Cartwright MD Care Team Information Mixer [employer]er [phone] Chetan Santiago MD - Internal Care Team Information Mixer [employer] Scaler [phone] Medicine Problems Active Problems Provider Date Hydrocele [...] Quadrivalent Unknown 0.5ml Alba Ipratropium Inhale One [place] By Unknown [place]/Albuterol Nebulizer Three Sulfate Times A Day 0.5-2.5(3)mg/3ML [...] kg/m2 BSA (Body Surface Area) 2.22 m2 [place] body weight in kilograms 86 kg O2 % BldC Oximetry 95 % 07/13/2019 11:19am BP Systolic 129 mmHg BP Diastolic 86 mmHg Body Temperature 96.7 F Heart Rate 95 /min Respiratory Rate 16 /min Height 74 inches 6'2" Weight 203.00 lb Pain Level 0 BMI (Body Mass Index) 26.1 kg/m2 BSA (Body Surface Area) 2.19 m2 [place] body weight in kilograms 86 kg O2 % BldC Oximetry 97 % Results Test Acquired Date Facility Test Result H/L Range Note Urine Dipstick 07/13/2019 [facility] Ua Color yellow Yellow Ua Clarity clear Clear Ua Leuko neg Negative Ua Nitrite neg Negative Ua Urobilinogen 0.2 0.2 - 1.0 E.U./dL Ua Protein neg Negative Ua PH 5.5 Low 6.5-7.5 Ua Blood neg Negative Ua Specific [place] 1.020 1.010-1.030 Ua Ketones neg Negative Ua Bilirubin neg Negative Ua Glucose neg Negative Procedures Date Code Description Status 11/09/2019 48917 Excision of hydrocele; unilateral Completed 07/13/2019 36327 Measurement Post Voiding Residual Urine By Completed Ultrasound,Non-Imaging 07/13/2019 21730 complex uroflowmetry electronic Completed Medical Devices Description No Information Available Encounters Type Date Location Provider Dx Diagnosis Office Visit 07/13/2019 Urology Robby Canchola, N43.3 Hydrocele, unspecified 11:00a M.D. Assessments Date Code Description Provider 11/12/2019 N43.3 Hydrocele, unspecified Robby Canchola M.D. 11/09/2019 N43.3 Hydrocele, unspecified JesikaRobby parsons M.D. 08/25/2019 J18.9 Pneumonia, unspecified organism MonzonJojo M.D. 08/25/2019 J96.01 Acute respiratory failure with hypoxia Jojo Monzon M.D. 08/25/2019 R04.2 Hemoptysis MonzonJojo geiger M.D. 08/25/2019 J44.9 Chronic obstructive pulmonary disease, Jojo Monzon M.D. unspecified 08/24/2019 J18.9 Pneumonia, unspecified organism Jojo Monzon M.D. 08/24/2019 J96.01 Acute respiratory failure with hypoxia MonzonJojo geiger M.D. 08/24/2019 R04.2 Hemoptysis Jojo Monzon M.D. [...]
--- OUTSIDE RECORDS SUMMARY | 2019-12-20 14:29 | XMS REPORT | Summary of Care ---
:1955 Author Organization [facility] Address [address] [place] [address] Care Team Providers Name Role Phone TompkinsChetan Marlo Primary Care Provider Reason for Visit Reason Comments Sore Throat x3 days Runny Nose Encounter Details Date Type Department Care Team Description 11/17/2019 Office Visit [facility], Acute URI (Primary Dx); Practice [facility]; [address] [facility] [place] [address] [place] [address] [phone] Allergies Active Allergy Reactions Severity Noted Date Comments No Known Drug Allergy 11/20/2007 documented as of this encounter (statuses as of 11/17/2019) Medications Medication Sig Dispensed Refills Start Date End Date Status Acetaminophen Take by mouth 0 Active (TYLENOL) 325 MG Oral NEEDED. Cap albuterol HFA Take 2 Puffs by 1 Inhaler 3 12/02/2018 Active (VENTOLIN HFA) 108 (90 inhalation EVERY Base) MCG/ACT FOUR HOURS Inhalation Aero Soln NEEDED (copd). albuterol-ipratropium 3 mL by 270 Vial 5 [...] AerosolIndications: Pulmonary emphysema, unspecified emphysema type (HCC) Tamsulosin HCl Take 1 Cap by 60 Cap 6 10/29/2019 Active (FLOMAX) 0.4 MG Oral mouth DAILY. Cap cephalexin (KEFLEX) EVERY 6 HOURS 0 12/20/2018 Active 500 MG Oral Cap OXYcodone 0 11/12/2019 Active (OXY-IR,OXY-FAST) 5 MG Oral Tab benzonatate (TESSALON Take 1 Cap by 60 Cap 0 11/17/2019 Active PERLES) 100 MG Oral mouth THREE TIMES CapIndications: Cough DAILY NEEDED for cough. documented as of this encounter (statuses as of 11/17/2019) Active Problems Problem Noted Date Essential hypertension [...] as of this encounter (statuses as of 11/17/2019) Resolved Problems Problem Noted Date Resolved Date Gangrene of toe 02/21/2018 12/26/2018 Mixed hyperlipidemia 11/07/2011 12/12/2011 Diverticulosis of Colon 11/20/2007 02/08/2017 Overview: Colonoscopy performed 07/14/07 Internal Hemorrhoids 11/20/2007 11/07/2011 Hiatal Hernia 11/20/2007 11/07/2011 Overview: EGD performed 07/14/07 Esophageal reflux 11/20/2007 11/07/2011 Dog bite(E906.0) 07/30/2007 11/07/2011 Overview: Dog bite to left posterior calf 07/29/07 documented as of this encounter (statuses as of 11/17/2019) Immunizations Name Administration Dates Next Due Adacel [...] Sign Reading Time Taken Comments Blood Pressure 142/70 11/17/2019 3:24 PM EDT Pulse 83 11/17/2019 3:24 PM EDT Temperature 36.6 11/17/2019 3:24 PM EDT C (97.9 F) Respiratory Rate - - Oxygen Saturation 95% 11/17/2019 3:24 PM EDT Inhaled Oxygen Concentration - - Weight 95.3 kg (210 lb) 11/17/2019 3:24 PM EDT Height 188 cm (6' 2") 11/17/2019 3:24 PM EDT Body Mass Index 26.96 11/17/2019 3:24 PM EDT documented in this encounter Patient Instructions Patient InstructionsGeri Early FNP - 11/17/2019 3:00 PM EDTRest Fluids Steam may help loosen congestion Mucinex thins mucus, finish Keflex Tessalon as needed for cough salt water gargle as needed for sore/scratchy throat Call if symptoms fail to resolve or worsen documented in this encounter Progress Notes Geri Early FNP - 11/17/2019 3:00 PM EDT PATIENT: Alexy Roa : 1955 DATE OF SERVICE: 11/17/2019 CHIEF COMPLAINT: Chief Complaint Patient presents with ? Sore Throat x3 days ? Runny Nose Subjective HISTORY OF PRESENT ILLNESS: Alexy Roa is a 64-y.o. male. HPI URI sx x 3-4 days - Significant other had URI and now sinusitis in past week. Rest, fluids. On Keflex already post surgery. No cough meds Past Medical History: Diagnosis Date ? Benign [...] file Gets together: Not on file Attends yazdanism service: Not on file Active member of [...] Concern No Social History Narrative Lives in 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 Negative for chills and fever. HENT: Positive for congestion. Negative for ear pain and sore throat. Respiratory: Positive for cough. Negative for sputum production, shortness of breath and wheezing. Musculoskeletal: Positive for myalgias. Recent surgery for hydrocele Neurological: Negative for headaches. Objective PHYSICAL EXAM: VITALS: BP (!) 142/70 | Pulse 83 | Temp 97.9 F (36.6 C) (Tympanic) | Ht 6' 2" (1.88 m) | Wt 210 lb (95.3 kg) | SpO2 95% | BMI 26.96 kg/m Body mass index is 26.96 kg/m. Physical Exam Vitals signs and nursing note reviewed. Constitutional: General: He is not in acute distress. Appearance: Normal appearance. He is not diaphoretic. HENT: Head: Normocephalic and atraumatic. Right Ear: Tympanic membrane normal. Left Ear: Tympanic membrane normal. Nose: Congestion and rhinorrhea present. Mouth/Throat: Lips: Gerty. Mouth: Mucous membranes are moist. Pharynx: Uvula midline. No oropharyngeal exudate or posterior oropharyngeal erythema. Comments: Post nasal drip Eyes: Extraocular Movements: Extraocular movements intact. Pupils: Pupils are equal, round, and reactive to light. Neck: Musculoskeletal: Normal range of motion. No neck rigidity. Cardiovascular: Rate and Rhythm: Normal rate and regular rhythm. Pulmonary: Effort: Pulmonary effort is normal. Breath sounds: Normal breath sounds. Lymphadenopathy: Cervical: No cervical adenopathy. Skin: General: Skin is warm and dry. Capillary Refill: Capillary refill takes less than 2 seconds. Coloration: Skin is not ashen, cyanotic or pale. Neurological: Mental Status: He is alert and oriented to person, place, and time. Psychiatric: Behavior: Behavior is cooperative. ASSESSMENT / IMPRESSION: ICD-9-CM ICD-10-CM 1. Acute URI 465.9 J06.9 2. Cough 786.2 R05 benzonatate (TESSALON PERLES) 100 MG Oral Cap 3. History of tobacco use V15.82 Z87.891 Plan Rest Fluids Steam may help loosen congestion Mucinex thins mucus, finish Keflex Tessalon as needed for cough salt water gargle as needed for sore/scratchy throat Call if symptoms fail to resolve or worsen Author: LANEY Burdick 11/17/2019 15:45 documented in this encounter Plan of Treatment Health Maintenance Due Date Last Done Comments CT Colonography 1955 FIT-DNA 1955 FIT/FOBT 1955 Sigmoidoscopy 1955 DTaP/Tdap/Td Vaccines [...] an individualized lifestyle goal for Alexy Dowling Roa: Please be sure to keep up-to-date [...] filedocumented in this encounter Visit Diagnoses Diagnosis Acute URI Acute upper respiratory infections of unspecified site Cough History of tobacco use Personal history of tobacco use, presenting hazards to health documented in this encounter Insurance Payer Benefit Plan / Subscriber ID Effective Dates Phone Address Type Group [facility] [employer] ACCESS [id number] Effective for all [facility] CARE PPO dates Guarantor Name Account Type Relation to Date of Phone Billing Patient Address CrispinAlexy Personal/Family 1955 [address] (Home) [address] [phone] [place], [place] (Work) [address] documented as of this encounter
--- OUTSIDE RECORDS SUMMARY | 2019-12-20 14:29 | XMS REPORT | Summary of Care ---
:1955 Author Organization [facility] Address [address] [place] [address] Care Team Providers Name Role Phone FredericktownChetan Marlo Primary Care Provider Reason for Visit Reason Comments Benign Prostatic Hypertrophy 3 month f/u Encounter Details Date Type Department Care Team Description 10/29/2019 Office Visit [facility] Gabbie, Benign prostatic [address] [facility] [place] [address] [address] urinary obstruction [phone] [place] [address] (Primary Dx) [phone] Allergies Active Allergy Reactions Severity Noted Date Comments No Known Drug Allergy 11/20/2007 documented as of this encounter (statuses as of 10/29/2019) Medications Medication Sig Dispensed Refills Start Date [...] GM Oral Tab mouth THREE TIMES DAILY. tramadol (ULTRAM) 50 Take 1 Tab by 28 Tab 0 09/29/2019 Active MG Oral mouth EVERY SIX TabIndications: HOURS NEEDED Varma's cyst of knee, (pain). Max Daily right Amount: 200 mg. simvastatin (ZOCOR) 40 Take 1 Tab by 90 Tab 5 10/12/2019 Active MG Oral mouth DAILY. TabIndications: Blue toe syndrome of left lower extremity (HCC) clopidogrel (PLAVIX) Take 1 Tab by 90 Tab 3 10/12/2019 Active 75 MG Oral mouth DAILY. 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 CAPSULE SR 24 HRIndications: Essential hypertension Tamsulosin HCl Take 1 Cap by 30 Cap 1 10/12/2019 Active (FLOMAX) 0.4 MG Oral mouth DAILY. CapIndications: Hyperplasia of prostate budesonide-formoterol Take 2 INHL by 1 Inhaler 5 10/19/2019 Active fumarate (SYMBICORT) inhalation TWICE 160-4.5 MCG/ACT DAILY. Inhalation AerosolIndications: Pulmonary emphysema, unspecified emphysema type (HCC) Tamsulosin HCl Take 1 Cap by 60 Cap 6 10/29/2019 Active (FLOMAX) 0.4 MG Oral mouth DAILY. Cap documented as of this encounter (statuses as of 10/29/2019) Active Problems Problem Noted Date Essential hypertension [...] as of this encounter (statuses as of 10/29/2019) Resolved Problems Problem Noted Date Resolved Date Gangrene of toe 02/21/2018 12/26/2018 Mixed hyperlipidemia 11/07/2011 12/12/2011 Diverticulosis of Colon 11/20/2007 02/08/2017 Overview: Colonoscopy performed 07/14/07 Internal Hemorrhoids 11/20/2007 11/07/2011 Hiatal Hernia 11/20/2007 11/07/2011 Overview: EGD performed 07/14/07 Esophageal reflux 11/20/2007 11/07/2011 Dog bite(E906.0) 07/30/2007 11/07/2011 Overview: Dog bite to left posterior calf 07/29/07 documented as of this encounter (statuses as of 10/29/2019) Immunizations Name Administration Dates Next Due Adacel [...] Signs Not on filedocumented in this encounter Progress Notes Rosa Cartwright MD - 10/29/2019 10:00 AM EST PATIENT: Adele Quinn : 1955 DATE OF SERVICE: 10/29/2019 REFERRING PRACTITIONER: Rosa Cartwright PRIMARY CARE PROVIDER: Chetan Santiago CHIEF COMPLAINT: Chief Complaint Patient presents with ? Benign Prostatic Hypertrophy 3 month f/u Subjective HISTORY OF PRESENT ILLNESS: Adele Quinn is a 64-y.o. male who presents for followup of 3 issues: 1. Lower urinary tract symptoms secondary to BPH 2. Erectile dysfunction has previously tried sildenafil more than a year ago 3. Right-sided hydrocele ? On Flomax daily and sildenafil PRN Results for ADELE QUINN ( ) as of 10/29/2019 10:18 Ref. Range 07/11/2019 08:03 Luteinizing Hormone Latest Ref Range: 1.30 - 8.00 MIU/ML 4.73 PROLACTIN Latest Ref Range: 3.7 - 17.9 ng/ml 10.1 TSH Latest Ref Range: 0.47 - 4.68 uIu/ml 1.32 Testosterone, Total Latest Ref Range: 250 - 1100 ng/dL 390 Testosterone, Free Latest Ref Range: 35.0 - 155.0 pg/mL 59.3 AUA: 4 PVR: zero cc Results for ADELE QUINN ( ) as of 10/29/2019 10:18 Ref. Range 02/08/2017 14:34 09/19/2017 15:19 12/06/2018 09:07 PSA Latest Ref Range: <4.00 ng/mL 0.6 0.7 0.69 Current Outpatient Medications Medication Sig ? Acetaminophen [...] Take 2 INHL byinhalation TWICE DAILY. ? clopidogrel (PLAVIX) 75 MG Oral Tab Take 1 Tab by mouth DAILY. ? diltiazem (CARDIZEM CD) 240 MG [...] Take 1 Cap by mouth DAILY. ? tramadol (ULTRAM) 50 MG Oral Tab Take 1 Tab by mouth EVERY SIX HOURS NEEDED (pain). Max Daily Amount: 200 mg. No current facility-administered medications for this visit. Allergies Allergen Reactions ? No Known Drug Allergy REVIEW OF SYSTEMS: All remaining review of systems was negative except for as noted in the history of present illness/subjective. Objective PHYSICAL EXAMINATION: VITALS: There were no vitals taken for this visit. There is no height or weight on file to calculate BMI. GENERAL: healthy, well nourished, in no distress. LUNGS: good air entry bilaterally, no crackles or wheezes. HEART: regular rhythm, no murmurs, no gallops, no rubs. ABDOMEN: no palpable masses, organomegaly or hernias, no peritoneal, flank or bladder tenderness. GENITOURINARY: defer exam. LABORATORY DATA: Urine today in the office is na DIAGNOSTIC DATA: Diagnostic tests reviewed today: labs and post void residual Plan IMPRESSION/PLAN:1. Lower urinary tract symptoms secondary to bph on FLOMAX 2. Erectile dysfunction on Sildenafil 3. Right-sided hydrocele ? ICD-9-CM ICD-10-CM 1. Benign prostatic hyperplasia with urinary obstruction 600.01 N40.1 POST VOID RESIDUAL MEASUREMENT 599.69 N13.8 He is waiting for his hydrocele repair at [place] and if he has any trouble getting scheduled he will call back for scheduling at Continue Flomax Sildenafil PRN Follow Up: Schedule follow-up here as needed if symptoms worsen.. Author: Rosa Cartwright MD 10/29/2019 10:17 documented in this encounter Plan of Treatment [...] Type Problems Progress Blood Pressure Blood Pressure 132/68 No Jack, < 150/90 (09/29/2019 Chetan Sellers, 8:51 AM EST) Note: This is an individualized treatment (blood pressure) goal for Adele Quinn: Displayed above (on the left) is your goal for blood pressure control. Your most recent blood pressure is also shown above, on the right. You should try to achieve blood pressures that are lower than your goal listed above (on the left). Smoking Cessation COPD Chetan Negrete MD Note: This is an individualized treatment (COPD) goal for Adele Quinn: Quit smoking immediately! Your provider has information and resources that may help you to quit. Keep immunizations current Lifestyle Chetan Negrete MD Note: This is an individualized lifestyle goal for Adele Quinn: Please be sure to keep up-to-date on recommended immunizations. For example, this would include a yearly influenza vaccine. Immunization status can be seen by looking at the Health Maintenance sections of your [facility], Plan of Care, and any After Visit Summaries. Take all prescribed medications as Self-management Chetan Negrete MD directed Note: This is an individualized self-management goal for Adele Quinn: Please take all prescribed medications as directed. [...] ongoing basis. documented as of this encounter Procedures Procedure Name Priority Date/Time Associated Diagnosis Comments POST VOID RESIDUAL Routine 10/29/2019 Benign prostatic Results for this MEASUREMENT hyperplasia with procedure are in the urinary obstruction results section. documented in this encounter Results POST VOID RESIDUAL MEASUREMENT (10/29/2019) POST VOID RESIDUAL 0 ml [facility] PO[facility] LONGITUDINAL AXIS 0 cm x cm [facility] PO[facility] HORIZONTAL AXIS 0 cm x cm [facility] POCT Performing Organization Address City/State/Zipcode Phone Number [facility] [address] [place] [address] documented in this encounter Visit Diagnoses Diagnosis Benign prostatic hyperplasia with urinary obstruction documented in this encounter Insurance Payer Benefit Plan / Subscriber ID Effective Dates Phone Address Type Group [facility] [employer] ACCESS [id number] Effective for all [facility] CARE PPO dates Guarantor Name Account Type Relation to Date of Phone Billing Patient Address Adele Quinn Personal/Family 1955 [address] (Home) [address] [phone] [place], [place] (Work) [address] documented as of this encounter
--- OUTSIDE RECORDS SUMMARY | 2019-12-20 14:29 | XMS REPORT | Continuity of Care Document ---
:1955 External Reference #:[id number] Author Name Robby Canchola M.D. (transmitted by agent of provider Martha Aleman) Address [address] [address] Care Team Providers Name Role Phone Rosa Cartwright MD Care Team Information Automation Software Engineer [phone] Chetan Santiago MD - Internal Care Team Information Automation Software Engineer [phone] Medicine Problems Active Problems Provider Date Hydrocele Robby Canchola M.D. Onset: 07/13/2019 Social History Type Date Description Comments Sex Unknown Tobacco Use Start: Unknown End: Unknown Patient is a former smoker Smoking Status Reviewed: 11/11/19 Patient is a former smoker Allergies, Adverse Reactions, Alerts Description No Known Drug Allergies Medications Active Medications SIG Qnty Indications Ordering Provider Date Sildenafil Citrate Gabbie, 50mg Rosa ZELAYA Tablets Tamsulosin HCL Gabbie, 0.4mg Rosa ZELAYA Capsules Ranitidine HCL Yajaira, 300mg Nina Trevizo NP Tablets Symbicort Chetan Santiago, 160-4.5mcg/Act Aerosol Clopidogrel Bisulfate Chetan Santiago, 75mg Tablets Diltiazem HCL ER Chetan Santiago, Coated Beads 240mg Caps ER 24HR Simvastatin Deidra Disla 40mg Tablets S., CFNP Fluarix Quadrivalent Unknown 0.5ml [place]ba Ipratropium Inhale One [place] By Unknown [place]/Albuterol Nebulizer Three Sulfate Times A Day 0.5-2.5(3)mg/3ML Solution Pantoprazole Sodium Take One Tablet By Unknown 40mg Mouth Every Day Tablets DR Bran Description No Information Available Vital Signs Date Vital Result Comment 07/13/2019 11:19am BP Systolic 129 mmHg BP Diastolic 86 mmHg Body Temperature 96.7 F Heart Rate 95 /min Respiratory Rate 16 /min Height 74 inches 6'2" Weight 203.00 lb Pain Level 0 BMI (Body Mass Index) 26.1 kg/m2 BSA (Body Surface Area) 2.19 m2 [place] body weight in kilograms 86 kg O2 % BldC Oximetry 97 % Results Test Acquired Date Facility Test Result H/L Range Note Urine Dipstick 07/13/2019 [facility] Color yellow Yellow Ua Clarity clear Clear Ua Leuko neg Negative Ua Nitrite neg Negative Ua Urobilinogen 0.2 0.2 - 1.0 E.U./dL Ua Protein neg Negative Ua PH 5.5 Low 6.5-7.5 Ua Blood neg Negative Ua Specific [place] 1.020 1.010-1.030 Ua Ketones neg Negative Ua Bilirubin neg Negative Ua Glucose neg Negative Procedures Date Code Description Status 11/09/2019 15627 Excision of hydrocele; unilateral Completed 07/13/2019 55555 Measurement Post Voiding Residual Urine By Completed Ultrasound,Non-Imaging 07/13/2019 78809 complex uroflowmetry electronic Completed Medical Devices Description No Information Available Encounters Type Date Location Provider Dx Diagnosis Office Visit 07/13/2019 Urology Robby Canchola, N43.3 Hydrocele, unspecified 11:00a MNgaDNga Assessments Date Code Description Provider 11/09/2019 N43.3 Hydrocele, unspecified Robby Canchola M.D. 08/25/2019 J18.9 Pneumonia, unspecified organism Jojo [...]
--- OUTSIDE RECORDS SUMMARY | 2019-12-20 14:29 | XMS REPORT | Continuity of Care Document ---
:1955 External Reference #:[id number] Author Name Robby Canchola M.D. (transmitted by agent of provider Liz Sam) Address [address] [address] Care Team Providers Name Role Phone Rosa Cartwright MD Care Team Information Human Resources Clerk [phone] Chetan Santiago MD - Internal Care Team Information Human Resources Clerk Medicine Problems Active Problems Provider Date Hydrocele [...] Quadrivalent Unknown 0.5ml Alba Ipratropium Inhale One [place] By Unknown [place]/Albuterol Nebulizer Three Sulfate Times A Day 0.5-2.5(3)mg/3ML [...] kg/m2 BSA (Body Surface Area) 2.22 m2 [place] body weight in kilograms 86 kg O2 % BldC Oximetry 95 % 07/13/2019 11:19am BP Systolic 129 mmHg BP Diastolic 86 mmHg Body Temperature 96.7 F Heart Rate 95 /min Respiratory Rate 16 /min Height 74 inches 6'2" Weight 203.00 lb Pain Level 0 BMI (Body Mass Index) 26.1 kg/m2 BSA (Body Surface Area) 2.19 m2 [place] body weight in kilograms 86 kg O2 % BldC Oximetry 97 % Results Test Acquired Date Facility Test Result H/L Range Note Urine Dipstick 07/13/2019 [facility] Inhouse Ua Color yellow Yellow Ua Clarity clear Clear Ua Leuko neg Negative Ua Nitrite neg Negative Ua Urobilinogen 0.2 0.2 - 1.0 E.U./dL Ua Protein neg Negative Ua PH 5.5 Low 6.5-7.5 Ua Blood neg Negative Ua Specific [place] 1.020 1.010-1.030 Ua Ketones neg Negative Ua Bilirubin neg Negative Ua Glucose neg Negative Procedures Date Code Description Status 11/09/2019 82323 Excision of hydrocele; unilateral Completed 07/13/2019 39406 Measurement Post Voiding Residual Urine By Completed Ultrasound,Non-Imaging 07/13/2019 19417 complex uroflowmetry electronic Completed Medical Devices Description No Information Available Encounters Type Date Location Provider Dx Diagnosis Office Visit 07/13/2019 Urology Robby Canchola, N43.3 Hydrocele, unspecified 11:00a M.D. Assessments Date Code Description Provider 12/01/2019 N43.3 Hydrocele, unspecified Jesika, Armandayo M.D. 11/12/2019 N43.3 Hydrocele, unspecified Jesika, Robby M.D. 11/09/2019 N43.3 Hydrocele, unspecified Jesika, Armandayo M.D. 08/25/2019 J18.9 Pneumonia, unspecified organism MonzonJojo M.D. 08/25/2019 J96.01 Acute respiratory failure with hypoxia Jojo Monzon M.D. 08/25/2019 R04.2 Hemoptysis MonzonJojo geiger M.D. 08/25/2019 J44.9 Chronic obstructive pulmonary disease, MonzonJojo geiger M.Aldo. unspecified 08/24/2019 J18.9 Pneumonia, unspecified organism MonzonJojo geiger M.D. 08/24/2019 J96.01 Acute respiratory failure with hypoxia Jojo Monzon M.D. 08/24/2019 R04.2 Hemoptysis MonzonJojo M.D. 08/24/2019 J44.9 Chronic obstructive pulmonary disease, MonzonJojo M.D. unspecified 08/23/2019 J18.9 Pneumonia, unspecified organism [...] Kim MD unspecified 07/13/2019 N43.3 Hydrocele, unspecified JesikaRobby M.DNga Plan of Treatment No Information Available Functional Status Description No Information Available Mental Status Description No Information Available Referrals Description No Information Available
--- OUTSIDE RECORDS SUMMARY | 2019-12-20 14:29 | XMS REPORT | Continuity of Care Document ---
:1955 External Reference #:[id number] Author Name Robby Canchola M.D. (transmitted by agent of provider Bob Esteban) Address [address] [address] Care Team Providers Name Role Phone Rosa Cartwrgiht MD Care Team Information Rv Repair Technician [phone] Chetan Santiago MD - Internal Care Team Information Rv Repair Technician [phone] Medicine Problems Active Problems Provider Date Hydrocele [...] Diltiazem HCL ER Chetan Santiago, Coated Beads MD 240mg Caps ER 24HR Simvastatin Deidra Disla 40mg Tablets S., CFNP Fluarix Quadrivalent Unknown 0.5ml Alba Ipratropium Inhale One [place] By Unknown [place]/Albuterol Nebulizer Three Sulfate Times A Day 0.5-2.5(3)mg/3ML Solution Pantoprazole Sodium Take One Tablet By Unknown 40mg Mouth Every Day Tablets DR Carafate 1 tab by mouth [...] kg/m2 BSA (Body Surface Area) 2.22 m2 [place] body weight in kilograms 86 kg O2 % BldC Oximetry 95 % 07/13/2019 11:19am BP Systolic 129 mmHg BP Diastolic 86 mmHg Body Temperature 96.7 F Heart Rate 95 /min Respiratory Rate 16 /min Height 74 inches 6'2" Weight 203.00 lb Pain Level 0 BMI (Body Mass Index) 26.1 kg/m2 BSA (Body Surface Area) 2.19 m2 [place] body weight in kilograms 86 kg O2 [...] 6.5-7.5 Ua Blood neg Negative Ua Specific [place] 1.020 1.010-1.030 Ua Ketones neg Negative Ua Bilirubin neg Negative Ua Glucose neg Negative Procedures Date Code Description Status 11/09/2019 37342 Excision of hydrocele; unilateral Completed 07/13/2019 36825 Measurement Post Voiding Residual Urine By Completed Ultrasound,Non-Imaging 07/13/2019 75003 complex uroflowmetry electronic Completed Medical Devices Description No Information Available Encounters Type Date Location Provider Dx Diagnosis Office Visit 07/13/2019 Urology Robby Canchola, N43.3 Hydrocele, unspecified 11:00a M.DNga Assessments Date Code Description Provider 11/09/2019 N43.3 Hydrocele, unspecified Robby Canchola M.D. 08/25/2019 J18.9 Pneumonia, unspecified organism MonzonJojo M.D. 08/25/2019 J96.01 Acute respiratory failure with hypoxia Jojo Monzon M.D. 08/25/2019 R04.2 Hemoptysis NicolásJojo M.D. 08/25/2019 J44.9 Chronic obstructive pulmonary disease, MonzonJojo M.D. unspecified 08/24/2019 J18.9 Pneumonia, unspecified organism MonzonJojo [...]
[2019-12-20 14:40] VITALS: BP 127/75
--- NOTE | 2019-12-20 14:43 | ED ---
Respiratory - HPI Summary HPI Summary: 64 yo WM h/o COPD quit 4 yrs ago presents with increasing SOB associated with mild sough with sputum this AM, at rest a bit more severe than his "usual" COPD sx, denies known exposure to Covid, denies f/c/ - History of Current Complaint Chief Complaint: UCGeneralIllness Stated Complaint: COUGH, LUNG PAIN Time Seen by Provider: 12/20/19 14:24 Hx Obtained From: Patient Onset/Duration: Sudden Onset Initial Severity: Moderate Current Severity: Moderate Pain Intensity: 4 Character: Cough (Productive), Dyspnea on Exertion Sputum Amount: Small Sputum Color: Guevara Aggravating Factor(s): Nothing Alleviating Factor(s): Nothing Associated Signs and Symptoms: Negative - Allergy/Home Medications Allergies/Adverse Reactions: Allergies Allergy/AdvReac Type Severity Reaction Status Date / Time No Known Allergies Allergy Verified 12/20/19 14:18 Home Medications: Home Medications Albuterol HFA INHALER* [Ventolin HFA Inhaler*] 1 puff INH Q4H PRN 10/27/17 [ History Confirmed 12/20/19] Clopidogrel Bisulfate [Plavix] 75 mg PO DAILY 10/27/17 [History Confirmed ] Simvastatin [Zocor] 40 mg PO BEDTIME 10/27/17 [History Confirmed 12/20/19] Pantoprazole Sodium 40 mg PO BEDTIME 01/31/18 [History Confirmed 12/20/19] dilTIAZem HCl [Diltiazem 24Hr ER (Cd)] 240 mg PO DAILY 01/31/18 [History Confirmed 12/20/19] Budesonide/Formote 160/4.5(NF) [Symbicort 160/4.5 (NF)] 2 puff INH BID 08/01/18 [History Confirmed 12/20/19] Levofloxacin TAB* [Levaquin TAB*] 750 mg PO DAILY 7 Days #7 tab 12/20/19 [Rx] Sucralfate TAB* [Carafate*] 1 gm PO BID 12/20/19 [History Confirmed 12/20/19] Tamsulosin CAP* [Flomax CAP*] 0.4 mg PO DAILY 12/20/19 [History Confirmed ] PMH/Surg Hx/FS Hx/Imm Hx Previously Healthy: No - COPD O2 sat around 92-94 per pt Cardiovascular History: Reports: Hx Hypertension Respiratory History: Reports: Hx Asthma, 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 - Surgical History Surgery Procedure, Year, and Place: BACK-DISC 1991 Infectious Disease History: No Infectious Disease History: Denies: History Other Infectious Disease, Traveled Outside the [place] in Last 30 Days - Family History Known Family History: Positive: None, Cardiac Disease, Hypertension, Diabetes - Social History Alcohol Use: Rare Substance Use Type: Reports: None Smoking Status (MU): Former Smoker Amount Used/How Often: 7 PER DAY Length of Time of Smoking/Using Tobacco: ~1 PPD x 45+ Years Have You Smoked in the Last Year: No Review of Systems Constitutional: Negative Eyes: Negative ENT: Negative Cardiovascular: Negative Positive: Shortness Of Breath, Cough Gastrointestinal: Negative Genitourinary: Negative Musculoskeletal: Negative Skin: Negative Neurological/Mental Status: Negative All Other Systems Reviewed And Are Negative: Yes Physical Exam - Summary Physical Exam Summary: Vital Signs Reviewed: Yes Appearance: Positive: No Pain Distress Skin: Positive: Warm Head/Face: Positive: Normal Head/Face Inspection Eyes: Positive: Normal ENT: Positive: Normal ENT inspection Dental: Negative: Cervical Lymphadenopathy Neck: Positive: Supple Respiratory/Lung Sounds: Positive:decreased BS right lung Cardiovascular: Positive: Normal, RRR, S1, S2 Abdomen Description: Positive: Nontender Musculoskeletal: Positive: Normal Neurological: Positive: Normal Psychiatric: Positive: Normal Triage Information Reviewed: Yes Disposition - Course Assessment/Plan: CXR- RLL infiltrate which clinically correlates with decreased BS in RLL, O2 sat is 96% on RA and decreases to 93% on ambulation, still within pt's baseline parameters given h/o COPD, advised to go to ED if SOB worsens, will d/c pt on outpt Levaquin - Diagnoses Provider Diagnoses: SOB (shortness of breath), COPD exacerbation - Critical Care Time Critical Care Statement: Critical care time is provided exclusive of any time spent performing procedures. Discharge ED - Sign-Out/Discharge Documenting (check all that apply): Patient Departure All imaging exams completed and their final reports reviewed: Yes - Discharge Plan Condition: Stable Disposition: HOME Prescriptions: Levofloxacin TAB* [Levaquin TAB*] 750 mg PO DAILY 7 Days #7 tab Patient Education Materials: Pneumonia (ED) Referrals: Chetan Santiago MD [Primary Care Provider] - - Billing Disposition and Condition Condition: STABLE Disposition: Home
== END 2019-12-20 16:00 | disposition home or self-care (01) ==
LOC: UCCORT 13:38
DX: R06.02 Shortness of breath (principal); J44.1 Chronic obstructive pulmonary disease with (acute) exacerbation; I10 Essential (primary) hypertension; Z79.899 Other long term (current) drug therapy
CPT/HCPCS: 71046; 87635; 99212; G0463